=== PATIENT | female | born 1940 | race Caucasian/White ===

== ENCOUNTER → 2016-11-19 | Outpatient (CLI) | payer BC | LOC: CIMAGING 09:01 | DX: Z12.31 Encounter for screening mammogram for malignant neoplasm of breast (principal) | CPT/HCPCS: G0202 ==

== ENCOUNTER → 2018-02-09 | Outpatient (CLI) | payer BC | LOC: CIMAGING 08:47 | PROVIDERS: ATTEND Family Medicine | DX: Z12.31 Encounter for screening mammogram for malignant neoplasm of breast (principal) ==

== ENCOUNTER → 2018-02-16 | Outpatient (CLI) | payer BC | LOC: CIMAGING 13:13 | PROVIDERS: ATTEND Family Medicine | DX: N63.13 Unspecified lump in the right breast, lower outer quadrant (principal) | CPT/HCPCS: 76641-PO ==

== ENCOUNTER → 2018-03-04 | Outpatient (CLI) | payer BC ==
[~2018-03-04] MED LIST: BUPIVACAINE 0.5% 30 ML SDV ONE; LIDOCAINE 1% 300 MG/30 ML SDV ONE
== END ==
LOC: FIMAGING 07:28
PROVIDERS: ATTEND Family Medicine
PROC: 0HBT3ZX Excision of Right Breast, Percutaneous Approach, Diagnostic (ICD-10-PCS; principal; 2018-03-04)
DX: D05.11 Intraductal carcinoma in situ of right breast (principal)

== ENCOUNTER → 2018-04-08 | Outpatient (CLI) | payer BC | LOC: FIMAGING 13:09 | PROVIDERS: ATTEND Surgery | DX: J40 Bronchitis, not specified as acute or chronic (principal); C50.911 Malignant neoplasm of unspecified site of right female breast; Z95.828 Presence of other vascular implants and grafts ==

== ENCOUNTER → 2018-04-08 | Outpatient (CLI) | payer BC | LOC: FIMAGING 07:16 | PROVIDERS: ATTEND Surgery | DX: C50.311 Malignant neoplasm of lower-inner quadrant of right female breast (principal) | CPT/HCPCS: 76098; 78195; A9520 ==

== ENCOUNTER → 2018-07-14 | Outpatient (CLI) | payer BC | LOC: FIMAGING 12:19 | PROVIDERS: ATTEND Nurse Practitioner | DX: J18.9 Pneumonia, unspecified organism (principal) ==